=== PATIENT | female | born 1990 | race Caucasian/White ===

== ENCOUNTER 2022-11-26 22:17 | Emergency (ER) | payer SELFPAY ==
[~2022-11-26] VITALS: Ht 172.7 cm; Wt 72.7 kg
[2022-11-26 22:56] VITALS: BP 119/77
== END 2022-11-27 03:12 | disposition left against medical advice (07) ==
LOC: ER 22:18
DX: M79.644 Pain in right finger(s) (principal); Z53.21 Procedure and treatment not carried out due to patient leaving prior to being seen by health care provider
CPT/HCPCS: 99281

== ENCOUNTER 2022-11-28 16:23 | Inpatient (IN) | payer BC ==
[~2022-11-28] VITALS: Ht 172.7 cm; Wt 75.0 kg
[2022-11-28] MEDS ORDERED: metroNIDAZOLE-Flagyl 500mg/NS 100 ML IV ONE (17:40)
[2022-11-28] MEDS ORDERED: CefTRIAXone 2gm/D5W 50ml BAG 50 ML IV ONE (17:40)
[2022-11-28 18:09] LABS: BASOPHILS # (AUTO) 0.1 X10'3 (0-0.2); BASOPHILS % (AUTO) 0.9 % (0-1); EOSINOPHILS # (AUTO) 0.1 X10'3 (0-0.9); EOSINOPHILS % (AUTO) 0.8 % (0-6); HEMATOCRIT 40.9 % (35.0-45.0); HEMOGLOBIN 13.4 g/dl (12.0-16.0); LYMPHOCYTES # (AUTO) 1.9 X10'3 (1.1-4.8); LYMPHOCYTES % (AUTO) 23.2 % (21-51); MEAN CORPUSCULAR HEMOGLOBIN 30.8 PG (27.0-31.0); MEAN CORPUSCULAR HGB CONC 32.8 g/dL (33.0-36.5); MEAN CORPUSCULAR VOLUME 93.9 FL (78-98); MEAN PLATELET VOLUME 7.6 FL (7.4-10.4); MONOCYTES # (AUTO) 0.6 X10'3 (0-0.9); NEUTROPHILS # (AUTO) 5.7 X10'3 (1.8-7.7); NEUTROPHILS % (AUTO) 68.1 % (42-75); PLATELET COUNT 290 X10'3 (140-440); RED BLOOD COUNT 4.36 X10'6 (4.20-5.60); RED CELL DISTRIBUTION WIDTH 13.4 % (11.5-14.5); WHITE BLOOD COUNT 8.3 X10'3 (4.5-11.0)
[2022-11-28 18:25] LABS: ALANINE AMINOTRANSFERASE 16 U/L (12-78); ALBUMIN 4.3 G/DL (3.4-5.0); ALBUMIN/GLOBULIN RATIO 1.2 (1.1-1.5); ALKALINE PHOSPHATASE 51 IU/L (46-116); ANION GAP 10 (8-16); ASPARTATE AMINO TRANSFERASE 23 U/L (10-37); BILIRUBIN,TOTAL 0.6 MG/DL (0.1-1.0); BLOOD UREA NITROGEN 20 MG/DL (7-18); BUN/CREATININE RATIO 28.6 (6.6-38.0); CALCIUM 9.1 MG/DL (8.5-10.1); CHLORIDE 101 MMOL/L (99-107); GLUCOSE 90 MG/DL (70-104); POTASSIUM 3.9 MMOL/L (3.5-5.1); SODIUM 135 MMOL/L (135-145); TOTAL CARBON DIOXIDE 23.9 MMOL/L (24-32); TOTAL PROTEIN 7.9 G/DL (6.4-8.2); eGFR > 90 ML/MIN
[2022-11-28 19:19] LABS: CLARITY,URINE CLEAR (Clear); COLOR,URINE STRAW (Yellow); GLUCOSE, URINE NEGATIVE (Neg); KETONES,URINE TRACE mg/dl (Neg); LEUKOCYTE ESTERASE ,URINE NEGATIVE (Neg); NITRITES, URINE NEGATIVE (Neg); OCCULT BLOOD,URINE NEGATIVE (Neg); PROTEIN,URINE NEGATIVE (Neg); UROBILINOGEN,URINE 0.2 E.U/dL (0.2-1.0)
[2022-11-28 19:24] LABS: UA COLLECTION TYPE CLN CATCH MIDSTREAM
[2022-11-28] MEDS ORDERED: magnesium Cl slow-release 64mg tablet PO PRN (20:40)
[2022-11-28] MEDS ORDERED: acetaminophen 325mg tablet PO PRN ×2 (20:40)
[2022-11-28] MEDS ORDERED: potassium Cl 40MEQ/1/2NS 520ml 520 ML IV PRN (20:40)
[2022-11-28] MEDS ORDERED: HYDROcodone/acetaminophen 5mg/325mg tablet PO PRN (20:40)
[2022-11-28] MEDS ORDERED: magnesium 4gm in 100ml NS 100 ML IV PRN (20:40)
[2022-11-28] MEDS ORDERED: ondansetron/PF 4mg/2ml inj IV PRN (20:40)
[2022-11-28] MEDS ORDERED: potassium Cl 20 mEq SR tablet PO PRN ×2 (20:40)
[2022-11-28] MEDS ORDERED: morphine 2 MG/ML inj. syringe IV PRN ×2 (20:40)
[2022-11-28] MEDS ORDERED: HYDROcodone/acetaminophen 10/325mg tab PO PRN (20:40)
[2022-11-28] MEDS ORDERED: vancomycin/NS 1 GM ADD-VANTAGE 250 ML X 1 DOSE IV ONE (20:55)
[2022-11-28] MEDS ORDERED: temazepam 15mg capsule PO PRN (21:00)
[2022-11-28] MEDS: normal saline 1000ml 1,000 ML IV SCH (22:11)
[2022-11-29] MEDS: normal saline 1000ml 1,000 ML IV SCH ×2 (06:40→13:00)
--- NOTE | 2022-11-29 08:00 | NUR ---
Report received from ER RADHA benitez at this time.
[2022-11-29 08:12] LABS: BASOPHILS # (AUTO) 0.1 X10'3 (0-0.2); BASOPHILS % (AUTO) 1.1 % (0-1); EOSINOPHILS # (AUTO) 0.1 X10'3 (0-0.9); EOSINOPHILS % (AUTO) 0.8 % (0-6); HEMATOCRIT 39.2 % (35.0-45.0); HEMOGLOBIN 13.2 g/dl (12.0-16.0); LYMPHOCYTES # (AUTO) 1.5 X10'3 (1.1-4.8); LYMPHOCYTES % (AUTO) 23.7 % (21-51); MEAN CORPUSCULAR HEMOGLOBIN 31.2 PG (27.0-31.0); MEAN CORPUSCULAR HGB CONC 33.6 g/dL (33.0-36.5); MEAN PLATELET VOLUME 7.9 FL (7.4-10.4); MONOCYTES # (AUTO) 0.4 X10'3 (0-0.9); MONOCYTES % (AUTO) 5.9 % (2-12); NEUTROPHILS # (AUTO) 4.4 X10'3 (1.8-7.7); NEUTROPHILS % (AUTO) 68.5 % (42-75); PLATELET COUNT 293 X10'3 (140-440); RED BLOOD COUNT 4.22 X10'6 (4.20-5.60); RED CELL DISTRIBUTION WIDTH 13.3 % (11.5-14.5); WHITE BLOOD COUNT 6.4 X10'3 (4.5-11.0)
[2022-11-29 08:21] LABS: ALANINE AMINOTRANSFERASE 17 U/L (12-78); ALBUMIN 3.9 G/DL (3.4-5.0); ALBUMIN/GLOBULIN RATIO 1.2 (1.1-1.5); ANION GAP 9 (8-16); ASPARTATE AMINO TRANSFERASE 24 U/L (10-37); BILIRUBIN,TOTAL 0.7 MG/DL (0.1-1.0); BLOOD UREA NITROGEN 11 MG/DL (7-18); BUN/CREATININE RATIO 16.7 (6.6-38.0); CALCIUM 8.4 MG/DL (8.5-10.1); CHLORIDE 103 MMOL/L (99-107); CREATININE 0.66 MG/DL (0.40-0.90); GLUCOSE 89 MG/DL (70-104); POTASSIUM 4.1 MMOL/L (3.5-5.1); SODIUM 137 MMOL/L (135-145); TOTAL CARBON DIOXIDE 24.6 MMOL/L (24-32); TOTAL PROTEIN 7.2 G/DL (6.4-8.2); eGFR > 90 ML/MIN
[2022-11-29 08:24] LABS: ALKALINE PHOSPHATASE 42 IU/L (46-116)
[2022-11-29] MEDS: vancomycin/NS 1 GM ADD-VANTAGE 250 ML IV SCH ×2 (09:52→21:02)
[2022-11-29 10:00] VITALS: BP 115/75
[2022-11-29] MEDS: heparin, porcine 5000 units/ml vial SQ SCH ×4 (10:15→21:25)
[2022-11-29] MEDS: cefepime 1GM/NS ADD-VANTAGE 100 ML IV SCH ×2 (13:50→19:59)
[2022-11-29 16:32] LABS: URINE AMPHETAMINE SCREEN NEGATIVE (Neg); URINE BARBITUATE SCREEN NEGATIVE (Neg); URINE BENZODIAZEPINES SCREEN NEGATIVE (Neg); URINE CANNABINOID SCREEN NEGATIVE (Neg); URINE COCAINE SCREEN NEGATIVE (Neg); URINE METHADONE SCREEN NEGATIVE (Neg); URINE OPIATE SCREEN NEGATIVE (Neg); URINE PHENCYCLIDINE SCREEN NEGATIVE (Neg)
[2022-11-29 18:00] VITALS: BP 98/52
--- NOTE | 2022-11-29 18:18 | NUR ---
2 RN/ DEPUTY BAILIFF skin check completed today by Deanne Rn and Jhoana DEPUTY BAILIFF.
--- NOTE | 2022-11-29 18:20 | NUR ---
Received report from Jhoana CASANOVA.
--- NOTE | 2022-11-29 18:20 | NUR ---
Report given to RICCI Palma
[2022-11-29] MEDS: lactobacillus rhamnosus 10,000 MMU CELLS/CAPSULE PO SCH (19:59)
[2022-11-29] MEDS: docusate sod 100mg capsule PO SCH (20:00)
--- NOTE | 2022-11-29 20:31 | NUR ---
promotional table spacer PAGER ID: [phone] MESSAGE: Yony Davidson. Having anxiety/crying. Usually takes 0.5mg lorazepam at home. Please may I have an order for and also MOm. kristal Palma [id number]
[2022-11-29] MEDS ORDERED: magnesium hydroxide 30ml (MOM) UD suspension PO ONE (20:50)
[2022-11-29] MEDS ORDERED: LORazepam 0.5 MG tablet PO PRN (20:50)
[2022-11-30 00:55] VITALS: BP 108/58
--- NOTE | 2022-11-30 01:36 | NUR ---
Gave info on heparin earlier in shift as at first she declined to have the shot. Addendum: 11/30/22 at 0136 by Minerva Robles RN Amended: Links added.
[2022-11-30] MEDS: normal saline 1000ml 1,000 ML IV SCH ×2 (02:29→12:40)
[2022-11-30 06:09] LABS: BASOPHILS # (AUTO) 0.1 X10'3 (0-0.2); BASOPHILS % (AUTO) 1.2 % (0-1); EOSINOPHILS # (AUTO) 0.1 X10'3 (0-0.9); EOSINOPHILS % (AUTO) 1.3 % (0-6); HEMATOCRIT 40.8 % (35.0-45.0); HEMOGLOBIN 13.6 g/dl (12.0-16.0); LYMPHOCYTES # (AUTO) 1.6 X10'3 (1.1-4.8); LYMPHOCYTES % (AUTO) 28.5 % (21-51); MEAN CORPUSCULAR HEMOGLOBIN 31.3 PG (27.0-31.0); MEAN CORPUSCULAR HGB CONC 33.4 g/dL (33.0-36.5); MEAN CORPUSCULAR VOLUME 93.7 FL (78-98); MEAN PLATELET VOLUME 8.1 FL (7.4-10.4); MONOCYTES # (AUTO) 0.4 X10'3 (0-0.9); MONOCYTES % (AUTO) 6.9 % (2-12); NEUTROPHILS # (AUTO) 3.6 X10'3 (1.8-7.7); NEUTROPHILS % (AUTO) 62.1 % (42-75); PLATELET COUNT 317 X10'3 (140-440); RED BLOOD COUNT 4.35 X10'6 (4.20-5.60); RED CELL DISTRIBUTION WIDTH 13.5 % (11.5-14.5); WHITE BLOOD COUNT 5.8 X10'3 (4.5-11.0)
[2022-11-30 06:17] LABS: ALANINE AMINOTRANSFERASE 19 U/L (12-78); ALBUMIN/GLOBULIN RATIO 1.1 (1.1-1.5); ALKALINE PHOSPHATASE 45 IU/L (46-116); ANION GAP 10 (8-16); ASPARTATE AMINO TRANSFERASE 24 U/L (10-37); BILIRUBIN,TOTAL 0.6 MG/DL (0.1-1.0); BLOOD UREA NITROGEN 12 MG/DL (7-18); BUN/CREATININE RATIO 17.6 (6.6-38.0); CALCIUM 8.5 MG/DL (8.5-10.1); CHLORIDE 105 MMOL/L (99-107); CREATININE 0.68 MG/DL (0.40-0.90); GLUCOSE 98 MG/DL (70-104); POTASSIUM 4.1 MMOL/L (3.5-5.1); SODIUM 137 MMOL/L (135-145); TOTAL CARBON DIOXIDE 21.9 MMOL/L (24-32); TOTAL PROTEIN 7.6 G/DL (6.4-8.2); eGFR > 90 ML/MIN
--- NOTE | 2022-11-30 06:30 | NUR ---
Problems reprioritized. Patient report given, questions answered & plan of care reviewed with Ania WYNNE.
[2022-11-30 06:34] LABS: HCG SERUM QL NEGATIVE
--- NOTE | 2022-11-30 06:44 | NUR ---
Patient in room [facility]. I have received report from Minerva WYNNE and had the opportunity to ask questions and assume patient care.
[2022-11-30 07:00] VITALS: BP 108/67
[2022-11-30] MEDS: heparin, porcine 5000 units/ml vial SQ SCH (08:00)
[2022-11-30] MEDS ORDERED: VANCOMYCIN LEVEL IV ONE (08:30)
[2022-11-30] MEDS: lactobacillus rhamnosus 10,000 MMU CELLS/CAPSULE PO SCH (08:31)
[2022-11-30] MEDS: docusate sod 100mg capsule PO SCH (08:31)
[2022-11-30] MEDS: cefepime 1GM/NS ADD-VANTAGE 100 ML IV SCH (08:32)
[2022-11-30] MEDS: vancomycin/NS 1 GM ADD-VANTAGE 250 ML IV SCH (09:37)
[2022-11-30] MEDS ORDERED: LEVO750T68 PO (13:55)
[2022-11-30] MEDS ORDERED: LACT1CAP26 PO (13:55)
[2022-11-30] MEDS ORDERED: LINE600T12 PO (13:56)
--- NOTE | 2022-11-30 15:30 | NUR ---
Received Discharge orders, reviewed with patient. IV removed with cannula intact. Patient walked to lobby with belongings.
[2022-11-30] MEDS ORDERED: vancomycin/NS 1 GM ADD-VANTAGE 250 ML IV SCH (17:00)
[2022-12-01] MEDS ORDERED: VANCOMYCIN LEVEL IV ONE (16:30)
== END 2022-11-30 15:20 | disposition home or self-care (01) | DRG 603 ==
LOC: ER 16:24 → ED HOLD 20:43 → SUR 3N 11-29 07:20
PROVIDERS: ADMIT Internal Medicine; ATTEND Family Medicine
DX: L03.011 Cellulitis of right finger (principal); W55.01XA Bitten by cat, initial encounter; Y93.89 Activity, other specified; Y92.89 Other specified places as the place of occurrence of the external cause; Y99.8 Other external cause status; Z88.0 Allergy status to penicillin; Z88.2 Allergy status to sulfonamides
CPT/HCPCS: 36415; 80053; 80202; 80305; 81003; 83605; 84145; 84703; 85025; 87040; 87081; 96365; 96375; 99285; G0378; J0692; J0696; J1644; J3370; J3490; J7030